=== PATIENT | male | born 2000 | race Two or more races ===

== ENCOUNTER 2022-08-22 05:31 | Inpatient (IN) | payer MEDICAID ==
[~2022-08-22] VITALS: Ht 144.8 cm; Wt 49.0 kg
--- NOTE | 2022-08-22 07:15 | NUR ---
RECEIVED CALL FROM SURI GLOVER RECEIVED REPORT FROM LIBRADO STEVENS.
--- NOTE | 2022-08-22 08:00 | NUR ---
RECEIVED PATIENT VIA GURNEY FROM [facility] ED, ACCOMPANIED BY 2 EMT'S AND 1 RN, pt awake but unresponsive to verbal command, NO FACIAL GRIMACING NOTED. NOT IN ANY DISTRESS, ON trach #8 shiley midline on mech vent. settings from previous facility alarms set and audible ambu-bag and spare trach at bedside. gonzalez blood from airway when suctioning NOTED. GT PATENT AND INTACT, FLUSHES WELL, NO RESIDUAL NOTED. BLOOD SUGAR 62, ORANGE JUICE GIVEN THRU GT, ROLAND [employer]IATION MEDICINE SPECIALIST MADE AWARE. RECHECKED SUGAR 77MG/DL. LEFT HAND PIV GAUGE 22 NOTED PATENT AND INTACT, FLUSHES WELL. NOTED REDNESS ON GT SITE, WOUND CARE CONSULT PLACED. PLACED ON TELE MONITOR WITH READING SR HR 60-61. PERICARE RENDERED. PLACED CALL LIGHT WITHIN REACH. HOB ELEVATED. ASPIRATION PRECAUTION MAINTAINED. SAFETY MEASURES IN PLACED. PLAN OF CARE CONTINUE.
--- NOTE | 2022-08-22 08:49 | NUR ---
Male trached pt received from [facility] direct admission to room 103. pt awake but unresponsive to verbal command trach #8 shiley midline on mech vent. settings from previous facility alarms set and audible ambu-bag and spare trach at bedside. gonzalez blood from airway when suctioning nursing staff aware.
[2022-08-22 09:00] VITALS: BP 121/62
[2022-08-22] MEDS ORDERED: SODI1TAB66 GT (09:53)
[2022-08-22] MEDS ORDERED: NUTR150016 GT (09:53)
[2022-08-22] MEDS ORDERED: HYDR-4076 GT (09:53)
[2022-08-22] MEDS ORDERED: RIVA10TA GT (09:53)
[2022-08-22] MEDS ORDERED: LEVO50TA8 GT (09:53)
[2022-08-22] MEDS ORDERED: DIVA125C5 GT (09:53)
[2022-08-22] MEDS ORDERED: DOCU50LI GT (09:53)
[2022-08-22] MEDS ORDERED: POLY15DR40 EACHEYE (09:53)
[2022-08-22] MEDS ORDERED: LANS30CA56 GT (09:55)
[2022-08-22] MEDS ORDERED: HYDROCODONE/APAP 5/325MG TABLET GT PRN (10:00)
[2022-08-22] MEDS ORDERED: IPRATROPIUM NEB FS 0.5 MG/2.5 ML AMPUL.NEB NEB PRN (10:00)
[2022-08-22] MEDS ORDERED: HYDROCODONE/APAP 10/325MG TABLET GT PRN (10:00)
[2022-08-22] MEDS ORDERED: Z GUARD REMEDY 4 OZ OINT TP PRN (10:00)
[2022-08-22] MEDS ORDERED: TEMAZEPAM 15 MG CAPSULE GT PRN (10:00)
[2022-08-22] MEDS ORDERED: ALBUTEROL FS 2.5 MG/3 ML VIAL.NEB NEB PRN (10:00)
[2022-08-22] MEDS ORDERED: LORAZEPAM INJ 2 MG/ML VIAL IV PRN (10:00)
[2022-08-22] MEDS ORDERED: ONDANSETRON HCL/PF 4 MG/2 ML VIAL IVP PRN (10:00)
[2022-08-22] MEDS ORDERED: PANTOPRAZOLE 40 MG VIAL IV SCH (10:00)
[2022-08-22] MEDS ORDERED: MULT-447 GT (10:02)
[2022-08-22] MEDS ORDERED: POLY17PO4 GT (10:02)
[2022-08-22] MEDS ORDERED: LEVE1000 GT (10:02)
[2022-08-22] MEDS ORDERED: CLOB2.5O2 GT (10:02)
[2022-08-22] MEDS ORDERED: ACET-868 GT (10:02)
[2022-08-22] MEDS ORDERED: BACL20TA GT (10:02)
[2022-08-22] MEDS ORDERED: ONDA4TAB5 GT (10:02)
[2022-08-22] MEDS ORDERED: OXCA300T15 GT (10:05)
[2022-08-22] MEDS ORDERED: CHOL100043 GT (10:21)
[2022-08-22] MEDS ORDERED: MAGN400O6 GT (10:21)
[2022-08-22] MEDS ORDERED: CLON0.1T GT (10:21)
[2022-08-22] MEDS ORDERED: IPRA3AMP23 IH (10:21)
[2022-08-22] MEDS ORDERED: METO-295 GT (10:21)
[2022-08-22] MEDS ORDERED: DIAZ1KIT6 RC (10:21)
[2022-08-22] MEDS ORDERED: DIPH25CA51 GT (10:21)
[2022-08-22] MEDS ORDERED: ALBU8.5H8 IH (10:21)
[2022-08-22] MEDS ORDERED: IPRA12.9 IH (10:21)
[2022-08-22 10:42] LABS: ALBUMIN 3.1 g/dL (3.4-5.0); BILIRUBIN,TOTAL 0.3 mg/dL (0.2-1.0); CALCIUM, SERUM 9.5 mg/dL (8.5-10.1); CREATININE 0.5 mg/dL (0.6-1.3); POTASSIUM 5.1 mmol/L (3.5-5.1); TOTAL PROTEIN, SERUM 10.3 g/dL (6.4-8.2)
[2022-08-22 11:05] LABS: BASOPHILS % (AUTO) 0.6 % (0.0-2.0); EOSINOPHILS % (AUTO) 2.2 % (0.0-6.0); HEMATOCRIT 29 % (39-51); HEMOGLOBIN 9.7 g/dL (13.5-17.5); LYMPHOCYTES # (AUTO) 1.3 K/uL (0.8-4.8); LYMPHOCYTES % (AUTO) 27.4 % (20.0-44.0); MEAN CORPUSCULAR HGB CONC 34 g/dl (31.0-36.0); MEAN CORPUSCULAR VOLUME 94 fL (80-96); MONOCYTES # (AUTO) 0.5 K/uL (0.1-1.30); MONOCYTES % (AUTO) 10.6 % (2.0-12.0); NEUTROPHILS # (AUTO) 2.9 K/uL (1.8-8.9); NEUTROPHILS % (AUTO) 59.2 % (43.0-81.0); PLATELET COUNT (AUTO) 232 K/uL (150-450); RED BLOOD CELL COUNT(AUTO) 3.09 MIL/uL (4.5-6.0); WHITE BLOOD COUNT (AUTO) 4.9 K/uL (4.3-11.0)
[2022-08-22] MEDS ORDERED: JEVITY 1.2 CAL 1,000 ML BOTTLE GT PRN (11:30)
[2022-08-22 13:00] VITALS: BP 102/50
--- NOTE | 2022-08-22 15:32 | NUR ---
SPUTUM COLLECTED, NOTED BLOODY SPUTUM, PUT IN THE FRIDGE, LAB INFORMED.
[2022-08-22] MEDS ORDERED: CLONIDINE HCL 0.1 MG TABLET GT PRN (16:30)
[2022-08-22] MEDS ORDERED: HOME MED MISCELLANEOUS XX SCH ×2 (16:30)
[2022-08-22] MEDS ORDERED: MAGNESIUM HYDROXIDE 30 ML UDC GT PRN (16:30)
[2022-08-22 17:00] VITALS: BP 122/85
[2022-08-22] MEDS ORDERED: ACETAMINOPHEN 650 MG/20.3 ML UDC GT PRN (17:00)
[2022-08-22] MEDS ORDERED: diphenhydrAMINE HCL ELIX 25 MG/10 ML UDC GT PRN (17:00)
[2022-08-22] MEDS ORDERED: METOCLOPRAMIDE HCL 10 MG/10 ML UDC GT PRN (17:00)
[2022-08-22] MEDS: SODIUM CHLORIDE 1000 MG TABLET GT SCH (17:17)
[2022-08-22] MEDS: OXCARBAZEPINE 150 MG TABLET GT SCH (17:17)
[2022-08-22] MEDS: BACLOFEN (10 MG) 10 MG TABLET GT SCH (17:17)
--- NOTE | 2022-08-22 18:07 | NUR ---
UA COLLECTED PLACED IN THE FRIDGE AND INFORMED LAB TO PER DIEM
--- NOTE | 2022-08-22 18:28 | NUR ---
SENIOR MAINTENANCE MACHINIST CLOSING NOTES PATIENT IN BED AWAKE, OBTUNDED, pt awake but unresponsive to verbal command, NO FACIAL GRIMACING NOTED. NOT IN ANY DISTRESS, ON trach #8 shiley midline on mech vent. settings as ordered. gonzalez blood from airway when suctioning NOTED. GT PATENT AND INTACT, FLUSHES WELL, NO RESIDUAL NOTED, ON JEVITY 1.2 @45ML/HR, TOLERATING WELL, NO N/V/D NOTED. LEFT HAND PIV GAUGE 22 NOTED PATENT AND INTACT, FLUSHES WELL. ON TELE MONITOR SR 70'S. PLACED CALL LIGHT WITHIN REACH. HOB ELEVATED. ASPIRATION PRECAUTION MAINTAINED. SAFETY MEASURES IN PLACED. WILL ENDORSE TO NIGHT NURSE FOR ROBERTA.
--- NOTE | 2022-08-22 18:53 | NUR ---
PHARMACY CALLED STATING THEY DON'T HAVE CLOBAZAM, CALLED ALL SAINTS,PER RN THEY CANNOT BRING IT HERE, PER PHARMACY INFORMED THE MD, INFORMED ROLAND CARRILLO, AWAITING FOR ORDERS.
[2022-08-22 18:58] LABS: BILIRUBIN,URINE NEGATIVE (NEGATIVE); COLOR,URINE YELLOW (YELLOW); LEUKOCYTE ESTERASE ,URINE 1+ (NEGATIVE); NITRITE, URINE NEGATIVE (NEGATIVE); PH,URINE 8.5 (5.0-8.0); PROTEIN,URINE NEGATIVE (NEGATIVE); UGLUCOSE NEGATIVE (NEGATIVE); UROBILINOGEN,URINE 0.2 EU/dL (0.2)
--- NOTE | 2022-08-22 19:00 | NUR ---
RN NOTE Report received from Jaimee Hummel RN, patient in bed, AO x 0, in no acute distress, saturation at 100% on trach to mechanical vent with prescribed settings, AC mode at rate of 18, TV 350, fio2 28%, peep 5. SR on the monitor, HR is 71. IV line at L hand 22g patent and flushing well, saline locked. Gtube in place, positive placement noted, no residual, with Jevity at 45 ml/hr. BUE and BLE are contracted. Aspiration and seizure precautions, and safety measures in place, bed is locked and at lowest position, HOB elevated, will continue to monitor and reassess.
[2022-08-22 19:08] LABS: BACTERIA,URINE 4+ /HPF (None Seen); RBC,URINE 0-2 /HPF (0-2); SQUAMOUS EPITHELIAL CELL,UR 0-2 /HPF (None Seen)
[2022-08-22 20:00] VITALS: BP 110/69
[2022-08-22] MEDS: hydrALAZINE HCL 25 MG TABLET GT SCH ×2 (20:52→21:00)
[2022-08-22] MEDS: DIVALPROEX SODIUM 125 MG CAP.SPRINK GT SCH (20:53)
[2022-08-22] MEDS: LEVETIRACETAM SOL (5 ML) 100 MG/ML UDC GT SCH (20:53)
[2022-08-23] VITALS: BP 127/82
[2022-08-23 04:00] VITALS: BP 107/62
[2022-08-23] MEDS: LEVOTHYROXINE SODIUM 50 MCG TABLET GT SCH (05:14)
[2022-08-23] MEDS: hydrALAZINE HCL 25 MG TABLET GT SCH ×3 (05:14→21:00)
--- NOTE | 2022-08-23 07:07 | NUR ---
RN NOTE Received patient in bed, AO x 0, in no acute distress, saturation at 100% on trach to mechanical vent with prescribed settings, AC mode at rate of 18, TV 350, fio2 28%, peep 5. Blood noted in the respiratory tubing, SR on the monitor, HR is 71. IV line at L hand 22g patent and flushing well, saline locked. Gtube in place, positive placement noted, no residual, with Jevity at 45 ml/hr. BUE and BLE are contracted. Aspiration and seizure precautions, and safety measures in place, bed is locked and at lowest position, HOB elevated, will continue to monitor and reassess.
[2022-08-23 07:28] LABS: CALCIUM, SERUM 9.1 mg/dL (8.5-10.1); CREATININE 0.5 mg/dL (0.6-1.3); MAGNESIUM 1.9 mg/dL (1.8-2.4); POTASSIUM 5.1 mmol/L (3.5-5.1)
[2022-08-23 08:00] VITALS: BP 115/62
[2022-08-23 08:21] LABS: BASOPHILS % (AUTO) 0.2 % (0.0-2.0); EOSINOPHILS % (AUTO) 1.5 % (0.0-6.0); HEMATOCRIT 31 % (39-51); HEMOGLOBIN 10.2 g/dL (13.5-17.5); LYMPHOCYTES # (AUTO) 1.9 K/uL (0.8-4.8); LYMPHOCYTES % (AUTO) 23.6 % (20.0-44.0); MEAN CORPUSCULAR HGB CONC 33 g/dl (31.0-36.0); MEAN CORPUSCULAR VOLUME 94 fL (80-96); MONOCYTES # (AUTO) 0.6 K/uL (0.1-1.30); MONOCYTES % (AUTO) 7.4 % (2.0-12.0); NEUTROPHILS # (AUTO) 5.3 K/uL (1.8-8.9); NEUTROPHILS % (AUTO) 67.3 % (43.0-81.0); PLATELET COUNT (AUTO) 250 K/uL (150-450); RED BLOOD CELL COUNT(AUTO) 3.27 MIL/uL (4.5-6.0); WHITE BLOOD COUNT (AUTO) 7.9 K/uL (4.3-11.0)
[2022-08-23] MEDS: POLYVINYL ALCOHOL 15 ML BOTTLE EACHEYE SCH (08:21)
[2022-08-23] MEDS: DIVALPROEX SODIUM 125 MG CAP.SPRINK GT SCH ×2 (08:22→21:44)
[2022-08-23] MEDS: DOCUSATE SODIUM LIQ 100 MG/10 ML UDC GT SCH (08:22)
[2022-08-23] MEDS: LEVETIRACETAM SOL (5 ML) 100 MG/ML UDC GT SCH ×2 (08:22→21:44)
[2022-08-23] MEDS: CHOLECALCIFEROL (VITAMIN D 3) 400 UNIT TABLET GT SCH (08:22)
[2022-08-23] MEDS: PANTOPRAZOLE 40 MG/PACK PACK GT SCH (08:23)
[2022-08-23] MEDS: OXCARBAZEPINE 150 MG TABLET GT SCH ×2 (08:23→16:05)
[2022-08-23] MEDS: BACLOFEN (10 MG) 10 MG TABLET GT SCH ×3 (08:23→16:05)
[2022-08-23] MEDS: MULTIVITAMINS,THERAGRAN 1 UDTAB TABLET GT SCH (08:23)
[2022-08-23] MEDS: POLYETHYLENE GLYCOL 3350 17 GM POWD.PACK GT SCH (08:23)
[2022-08-23] MEDS: SODIUM CHLORIDE 1000 MG TABLET GT SCH ×2 (08:23→16:05)
[2022-08-23] MEDS ORDERED: RIVAROXABAN 10 MG TABLET GT SCH (09:00)
--- NOTE | 2022-08-23 10:07 | NUR ---
RN NOTE PATIENT HAS BLEEDING TROUGH THE THRACHEIOSTOMY , CR MG , GERARDO ORDER
[2022-08-23] MEDS ORDERED: CEFEPIME 1 GM in IV D5W 50 ML IV SCH (11:00)
[2022-08-23] MEDS: CEFEPIME 2 GM in IV D5W 100 ML IV SCH ×2 (11:42→21:43)
[2022-08-23 12:00] VITALS: BP 97/49
--- NOTE | 2022-08-23 12:21 | NUR ---
rn note hydralazine was hold due to patient has low bp 95/48 hr 78
[2022-08-23 12:43] LABS: D-DIMER 1.65 mg/L(FEU (0.17-0.50)
[2022-08-23] MEDS: JEVITY 1.2 CAL 1,000 ML BOTTLE GT PRN (14:07)
[2022-08-23 16:00] VITALS: BP 94/49
--- NOTE | 2022-08-23 18:28 | NUR ---
SPORTS CENTRE MANAGER CLOSING NOTES PATIENT IN BED AWAKE, OBTUNDED, pt awake but unresponsive to verbal command, NO FACIAL GRIMACING NOTED. NOT IN ANY DISTRESS, ON trach #8 shiley on mech vent. settings as ordered. gonzalez blood from airway when suctioning NOTED. GT PATENT AND INTACT, FLUSHES WELL, NO RESIDUAL NOTED, ON JEVITY 1.2 @45ML/HR, TOLERATING WELL, NO N/V/D NOTED. LEFT HAND PIV GAUGE 22, RIGHT HAND 24 G, NOTED PATENT AND INTACT, FLUSHES WELL. ON TELE MONITOR SR 70'S. PLACED CALL LIGHT WITHIN REACH. HOB ELEVATED. ASPIRATION PRECAUTION MAINTAINED. SAFETY MEASURES IN PLACED. WILL ENDORSE TO NIGHT NURSE FOR ROBERTA.
--- NOTE | 2022-08-23 19:30 | NUR ---
FAMILY HEALTH NURSE PRACTITIONER OPENING NOTES - RECEIVED PATIENT AWAKE, HOB IN SEMI-COOPER'S. OBTUNDED. BREATHING EVEN AND NON-LABORED, ON MECHANICAL VENT WITH THE FF SETTINGS: AC 18, TV 350, FIO2 28, PEEP 5. NOT IN APPARENT DISTRESS. NO S/S OF PAIN OR DISCOMFORT AT THIS TIME. ON TELE MONITOR READING SINUS BRADYCARDIA AT 58 BPM. HAS THE FF IV ACCESS: LEFT HAND #22G AND RIGHT WRIST #24G, BOTH SALINE LOCKED. NO S/S OF INFILTRATION NOTED. HAS CONDOM CATHETER CONNECTED TO BAG. HAS PEG TUBE FEEDING OF JEVITY RUNNING AT 45 ML/HR. SAFETY PRECAUTIONS IN PLACE: BED LOCKED AND IN LOW POSITION, SIDE RAILS UP X3, BED ALARM ON, CALL LIGHT WITHIN REACH. WILL CONTINUE PLAN OF CARE.
[2022-08-23 20:00] VITALS: BP 104/63
[2022-08-24] VITALS: BP 110/65
--- NOTE | 2022-08-24 01:00 | NUR ---
URSULA MIDLINE #18G INSERTED BY ADELAIDE DELGADO, IDENTIFICATION PRINTING MACHINE SETTER
[2022-08-24 04:00] VITALS: BP 112/60
[2022-08-24] MEDS: hydrALAZINE HCL 25 MG TABLET GT SCH ×3 (05:00→21:00)
[2022-08-24] MEDS: LEVOTHYROXINE SODIUM 50 MCG TABLET GT SCH (05:43)
[2022-08-24 06:43] LABS: CALCIUM, SERUM 8.7 mg/dL (8.5-10.1); CREATININE 0.5 mg/dL (0.6-1.3); POTASSIUM 4.7 mmol/L (3.5-5.1)
--- NOTE | 2022-08-24 07:25 | NUR ---
MANAGER OF PROGRAM OPENING NOTES RECEIVED PT RESTING IN BED. NO CARDIAC OR RESPIRATORY DISTRESS NOTED. TOLERATING CURRENT MECHANICAL VENT SETTINGS WELL. SLIGHT BLOOD IN TRACH NOTED. ON TELE MONITOR READING SINUS RHYTHM AT 70 BPM. IV ACCESS IN LEFT HAND AND RIGHT WRIST AND RIGHT UPPER ARM MIDLINE INTACT, PATENT AND FLUSHING. WITH CONDOM CATH DRAINING CLEAR YELLOW URINE OUTPUT. ON PEG TUBE FEEDING AT 45ML/HR. SAFETY PRECAUTION IMPLEMENTED: BED LOCKED AND IN LOWEST POSITION, SIDE RAILS UP X 3. WILL CONTINUE TO MONITOR.
--- NOTE | 2022-08-24 07:27 | NUR ---
CHECK TOTALER CLOSING NOTES - PATIENT RESTING IN BED, AWAKE THROUGHOUT THE NIGHT. NO CARDIAC OR RESPIRATORY DISTRESS NOTED. TOLERATING CURRENT MECHANICAL VENT SETTINGS WELL. BLOODY TRACH DRAINAGE NOTED. GENTLE SUCTIONING DONE NEEDED. AFEBRILE. ON TELE MONITOR READING SINUS RHYTHM AT 70 BPM. LEFT HAND PIV, RIGHT WRIST PIV AND RIGHT UPPER ARM MIDLINE INTACT, PATENT AND FLUSHING. CLEAR YELLOW URINE OUTPUT NOTED. TOLERATING PEG TUBE FEEDING WELL, 30ML RESIDUAL NOTED. ALL DUE MEDS GIVEN AND NEEDS ATTENDED. OFFLOADED BUTTOCKS AND EXTREMITIES. TURNED AND REPOSITIONED. BEDBOUND AND NEEDS MAXIMUM ASSISTANCE. SAFETY PRECAUTIONS MAINTAINED. WILL ENDORSE TO NEXT SHIFT FOR ROBERTA.
[2022-08-24 08:00] VITALS: BP 109/61
[2022-08-24] MEDS: CEFEPIME 2 GM in IV D5W 100 ML IV SCH ×2 (08:34→21:35)
[2022-08-24] MEDS: POLYETHYLENE GLYCOL 3350 17 GM POWD.PACK GT SCH (08:34)
[2022-08-24] MEDS: OXCARBAZEPINE 150 MG TABLET GT SCH ×2 (08:34→17:33)
[2022-08-24] MEDS: LEVETIRACETAM SOL (5 ML) 100 MG/ML UDC GT SCH ×2 (08:34→21:35)
[2022-08-24] MEDS: DOCUSATE SODIUM LIQ 100 MG/10 ML UDC GT SCH (08:34)
[2022-08-24] MEDS: SODIUM CHLORIDE 1000 MG TABLET GT SCH ×5 (08:35→23:09)
[2022-08-24] MEDS: MULTIVITAMINS,THERAGRAN 1 UDTAB TABLET GT SCH (08:35)
[2022-08-24] MEDS: CHOLECALCIFEROL (VITAMIN D 3) 400 UNIT TABLET GT SCH (08:35)
[2022-08-24] MEDS: BACLOFEN (10 MG) 10 MG TABLET GT SCH ×3 (08:35→17:33)
[2022-08-24] MEDS: PANTOPRAZOLE 40 MG/PACK PACK GT SCH (08:35)
[2022-08-24] MEDS: DIVALPROEX SODIUM 125 MG CAP.SPRINK GT SCH ×2 (08:35→21:35)
[2022-08-24] MEDS: POLYVINYL ALCOHOL 15 ML BOTTLE EACHEYE SCH (08:41)
--- NOTE | 2022-08-24 10:10 | NUR ---
RN NOTE Sodium Chloride 1000mg tab due at 1000 not given, Sodium Chloride 1000mg tab given at 0835.
[2022-08-24 12:00] VITALS: BP 109/61
[2022-08-24 16:00] VITALS: BP 116/68
--- NOTE | 2022-08-24 19:30 | NUR ---
SALES REPRESENTATIVE SALES MANAGER CLOSING NOTES PT RESTING IN BED. TOLERATING CURRENT MECHANICAL VENT SETTINGS WELL. SLIGHT BLOOD IN TRACH NOTED. ON TELE MONITOR READING SINUS RHYTHM AT 70 BPM. IV ACCESS IN LEFT HAND AND RIGHT WRIST AND RIGHT UPPER ARM MIDLINE INTACT, PATENT AND FLUSHING. WITH CONDOM CATH DRAINING CLEAR YELLOW URINE OUTPUT. ON PEG TUBE FEEDING AT 45ML/HR. NEEDS ATTENDED. SUCTIONED SECRETIONS NEEDED. TURNED AND REPOSITIONED. SAFETY PRECAUTION IMPLEMENTED: BED LOCKED AND IN LOWEST POSITION, SIDE RAILS UP X 3. WILL ENDORSE ROBERTA TO KEEL PRESS OPERATOR.
--- NOTE | 2022-08-24 19:31 | NUR ---
SCLEROSCOPE TESTER OPENING NOTES RECEIVED PATIENT IN BED AWAKE. ON MECHANICAL VENT SETTING ON AC: 18, TV: 350, FIO2: 28, PEEP: 5 PATIENT TOLERATING WELL SATURATION 100%. NOTED TO HAVE TINGED OF BLOOD ON THE TRACH ENDORSED. ON TELE MONITOR READING SINUS RHYTHM AT 70 BPM. IV ACCESS RIGHT WRIST #24 SALINE LOCK NOTED TO BE PATENT AND INTACT. RIGHT UPPER ARM MIDLINE INTACT, PATENT AND FLUSHING. WITH CONDOM CATH DRAINING CLEAR YELLOW URINE OUTPUT. ON PEG TUBE FEEDING AT 45ML/HR. SAFETY PRECAUTION IMPLEMENTED: BED LOCKED AND IN LOWEST POSITION, SIDE RAILS UP X 3, CALL LIGHT AND BEDSIDE TABLE WITHIN PATIENT REACH. HOB ELEVATED.
[2022-08-24 20:00] VITALS: BP 93/38
--- NOTE | 2022-08-24 21:00 | NUR ---
RN NOTE HOLD HYDRALAZINE BLOOD PRESSURE TOO LOW CHECKED 2 TIMES. BP IS 93/38. CHARGE NURSE MADE AWARE.
--- NOTE | 2022-08-24 22:25 | NUR ---
RN NOTE PATIENT VOMITED. REGLAN IS GIVEN. WILL REASSESS
--- NOTE | 2022-08-24 22:25 | NUR ---
RN NOTE HOLD TUBE FEEDING. PATIENT IS VOMITING LARGE AMOUNT X3. BOARDING ROOM FIXER DELGADO MADE AWARE.
[2022-08-25] VITALS: BP 100/55
[2022-08-25] MEDS ORDERED: IV NS 0.9% 250 ML IV ONE (00:40)
[2022-08-25] MEDS ORDERED: CT SWABBABLE VALVE TRANS SET 1 EA INFUS.SET MC ONE (00:40)
[2022-08-25] MEDS ORDERED: IOHEXOL-300 100 ML VIAL IV ONE (00:40)
[2022-08-25] MEDS ORDERED: IV D5/ 0.9% NACL 1,000 ML IV PRN (01:00)
--- NOTE | 2022-08-25 01:25 | NUR ---
RN NOTE NEW ORDER OF CT ABDOMEN AND PELVIS WITH CONTRAST RECEIVED FROM GERARDO DELGADO. CALLED PATIENTS UNCLE TOMMIE BUIARA PHONE NUMBER [phone] VERBAL CONSENT IS AUTHORIZED BY PATIENTS UNCLE TOMMIE CREWS. TWO RNS SIGNED WITNESS SIGNED AND VERIFIED.
[2022-08-25 04:00] VITALS: BP 110/47
[2022-08-25] MEDS: hydrALAZINE HCL 25 MG TABLET GT SCH ×3 (05:00→21:00)
[2022-08-25] MEDS: LEVOTHYROXINE SODIUM 50 MCG TABLET GT SCH (05:10)
[2022-08-25] MEDS: SODIUM CHLORIDE 1000 MG TABLET GT SCH ×4 (05:10→23:18)
--- NOTE | 2022-08-25 05:10 | NUR ---
RN NOTE PATIENT ON TELE READING OF SINUS JOSE ON 45-47BPM. TRAIN ELECTRONIC TECHNICIAN SANDY MADE AWARE. CHARGE NURSE MADE AWARE.
--- NOTE | 2022-08-25 05:45 | NUR ---
RN NOTE CT SCAN OF ABDOMEN AND PELVIS WITH CONTRAST RESULTED. SEAL DELIVERY VEHICLE TEAM TECHNICIAN SANDY MADE AWARE.
--- NOTE | 2022-08-25 05:48 | NUR ---
RN NOTE HOLD HYDRALAZINE BLOOD PRESSURE LOW 110/47
--- NOTE | 2022-08-25 06:35 | NUR ---
COMPLAINT MANAGER CLOSING NOTES PATIENT IN BED AWAKE. ON MECHANICAL VENT SETTING ON AC: 18, TV: 350, FIO2: 28, PEEP: 5 PATIENT TOLERATING WELL SATURATION 100%. NOTED TO HAVE TINGED OF BLOOD ON THE TRACH ENDORSED. NO SIGNS OF SOB. ON TELE MONITOR READING SINUS RHYTHM AT 70 BPM. IV ACCESS RIGHT WRIST #24 SALINE LOCK NOTED TO BE PATENT AND INTACT. WITH CONDOM CATH DRAINING CLEAR YELLOW URINE OUTPUT. TUBE FEEDING ON HOLD. RESIDUAL 30CC. ALL DUE MEDICATIONS GIVEN, ALL NEEDS ARE MET. MADE SURE PATIENT IS CLEAN AND COMFORTABLE, REPOSITIONED PATIENT Q2HR ALL THROUGH OUT THE NIGHT. NO SIGNS OF DISTRESS NOTED, NOT IN PAIN AT THIS TIME. SAFETY PRECAUTION IMPLEMENTED: BED LOCKED AND IN LOWEST POSITION, SIDE RAILS UP X 3, CALL LIGHT AND BEDSIDE TABLE WITHIN PATIENT REACH. HOB ELEVATED. WILL ENDORSE TO NEXT SHIFT NURSE FOR CONTINUITY OF CARE.
[2022-08-25 06:36] LABS: CALCIUM, SERUM 9.3 mg/dL (8.5-10.1); CREATININE 0.6 mg/dL (0.6-1.3); POTASSIUM 4.6 mmol/L (3.5-5.1)
--- NOTE | 2022-08-25 07:32 | NUR ---
SLIDER ASSEMBLER OPENING NOTES PATIENT IN BED AWAKE. ON MECHANICAL VENT SETTING AC: 18, TV: 350, FIO2: 28, PEEP: 5. PATIENT TOLERATING WELL, BREATHING EVEN AND UNLABORED WITH NO S/S OF SOB OR RESPIRATORY DISTRESS. DRIED BLOOD PRESENT ON TRACH. IV ACCESS NOTED ON RIGHT WRIST #24 SALINE LOCKED, PATENT AND INTACT. CONDOM CATH NOTED DRAINING CLEAR YELLOW URINE OUTPUT. TUBE FEEDING ON HOLD PER ADVERTISING TRAFFIC MANAGER NURSE DUE TO EPISODE OF EMESIS DURING PM SHIFT. SAFETY PRECAUTION IMPLEMENTED WITH BED LOCKED AND IN LOWEST POSITION, SIDE RAILS UP X 3, CALL LIGHT AND BEDSIDE TABLE WITHIN PATIENT REACH, AND HOB ELEVATED. WILL CONTINUE TO MONITOR.
[2022-08-25 08:00] VITALS: BP 107/54
[2022-08-25] MEDS ORDERED: BISACODYL SUPP (10 MG) 10 MG/SUPP.RECT SUPP.RECT RC PRN (08:00)
[2022-08-25] MEDS: POLYETHYLENE GLYCOL 3350 17 GM POWD.PACK GT SCH (08:31)
[2022-08-25] MEDS: BACLOFEN (10 MG) 10 MG TABLET GT SCH ×3 (08:32→17:04)
[2022-08-25] MEDS: DOCUSATE SODIUM LIQ 100 MG/10 ML UDC NG SCH ×2 (08:32→17:03)
[2022-08-25] MEDS: LEVETIRACETAM SOL (5 ML) 100 MG/ML UDC GT SCH ×2 (08:32→20:41)
[2022-08-25] MEDS: MULTIVITAMINS,THERAGRAN 1 UDTAB TABLET GT SCH (08:32)
[2022-08-25] MEDS: DIVALPROEX SODIUM 125 MG CAP.SPRINK GT SCH ×2 (08:32→20:42)
[2022-08-25] MEDS: PANTOPRAZOLE 40 MG/PACK PACK GT SCH (08:33)
[2022-08-25] MEDS: OXCARBAZEPINE 150 MG TABLET GT SCH ×2 (08:33→17:04)
[2022-08-25] MEDS: CHOLECALCIFEROL (VITAMIN D 3) 400 UNIT TABLET GT SCH (08:34)
[2022-08-25] MEDS: CEFEPIME 2 GM in IV D5W 100 ML IV SCH ×2 (08:38→20:45)
--- NOTE | 2022-08-25 09:26 | NUR ---
WOUND CARE CONSULT: PT PRESENTS WITH SCARRING AND INTACT DEEP TISSUE INJURY TO SACRUM, PRESENT ON ADMISSION. RECOMMENDATIONS MADE FOR SKIN PROTECTION. DISCUSSED WITH NURSING STAFF. PT IS INCONTINENT. CONDOM CATH IN USE. MD IN AGREEMENT WITH PLAN OF CARE.
[2022-08-25] MEDS: POLYVINYL ALCOHOL 15 ML BOTTLE EACHEYE SCH (10:44)
--- NOTE | 2022-08-25 10:49 | NUR ---
PER DR DAY, PATIENT GT SHOULD BE FLUSHED WITH NS, NOT WATER.
[2022-08-25 11:24] LABS: THYROID STIMULATING HORMONE 2.075 uIU/mL (0.358-3.74)
[2022-08-25 12:00] VITALS: BP 105/61
[2022-08-25] MEDS: ENOXAPARIN SODIUM 40 MG/0.4 ML DISP.SYRIN SQ SCH (12:41)
--- NOTE | 2022-08-25 14:34 | NUR ---
PATIENT TO CONTINUE RECEIVING ANTICOAGULANTS PER ROLAND HART DNP BLEEDING HAS BEEN RESOLVED. CHANGED TO LOVENOX.
[2022-08-25 16:00] VITALS: BP 100/45
--- NOTE | 2022-08-25 17:13 | NUR ---
ROLAND HART DNP ORDERED RESTART OF G-TUBE FEEDING AT VERY LOW RATE. STARTED OF 10. MINIMAL RESIDUAL SO INCREASED TO 20 AT 1648.
--- NOTE | 2022-08-25 18:41 | NUR ---
RAGS LABORER CLOSED NOTES PATIENT IN BED AWAKE. OBTUNDED. ON MECHANICAL VENT SETTING AC: 18, TV: 350, FIO2: 28, PEEP: 5. SATING AT 100% BREATHING EVEN AND UNLABORED WITH NO S/S OF SOB OR RESPIRATORY DISTRESS. ON TELE MONITOR READING SB 41 - SR 95. IV ACCESS NOTED ON RIGHT WRIST #24 SALINE LOCKED AND LEFT HAND 22G PATENT AND INTACT. CONDOM CATH NOTED DRAINING CLEAR YELLOW URINE OUTPUT. GT INTACT RUNNING JEVITY 1.2 @ 20 CC/HR. ALL DUE MEDS GIVEN AND PATIENT KEPT CLEAN AND COMFORTABLE. SAFETY PRECAUTION IMPLEMENTED WITH BED LOCKED AND IN LOWEST POSITION, SIDE RAILS UP X 3, CALL LIGHT AND BEDSIDE TABLE WITHIN PATIENT REACH, AND HOB ELEVATED. WILL ENDORSE TO ONCOMING SHIFT FOR ROBERTA..
--- NOTE | 2022-08-25 19:30 | NUR ---
FRONT DESK PERSON OPENING NOTES RECEIVED PATIENT AWAKE IN BED WITH OPEN EYES. NO PAIN NOTED. NO SOB NOTED. NO DISTRESS NOTED. PATIENT IS OBTUNDED. PATIENT IS ON VENT , SETTING OF SHILEY , AC 18, , TV 350, FIO2 28 AND PEEP 5, O2 SAT NOTED 97%. PATIENT HAS CONDOM CATHETER. ON TELE MONITOR READING SB 52. ON GTUBE FEEDING OF JEVITY 1.2 AT 20 CC/HR CURRENTLY. IV ACCESS IS ON LEFT HAND G # 22 AND RIGHT WRIST # 24. ALL NEEDS ATTENDED. ALL SAFETY MEASURES IN PLACE. BED LOCKED IN THE LOWEST POSITION. CALL LIGHT IN EASY REACH. SIDE RAILS UP TIMES 3. BED ALARM ON. HEAD OF THE BED ELEVATED FOR ASPIRATION PRECAUTION. WILL CONTINUE TO MONITOR CLOSELY
[2022-08-25 20:00] VITALS: BP 103/58
[2022-08-26 00:53] VITALS: BP 98/45
[2022-08-26] MEDS: hydrALAZINE HCL 25 MG TABLET GT SCH ×3 (05:00→21:00)
[2022-08-26] MEDS: LEVOTHYROXINE SODIUM 50 MCG TABLET GT SCH (05:38)
[2022-08-26] MEDS: SODIUM CHLORIDE 1000 MG TABLET GT SCH ×3 (05:38→17:35)
[2022-08-26 05:53] VITALS: BP 108/60
--- NOTE | 2022-08-26 06:32 | NUR ---
CONDITIONING COACH CLOSING NOTES PATIENT AWAKE IN BED WITH OPEN EYES. NO PAIN NOTED. NO SOB NOTED. NO DISTRESS NOTED. PATIENT IS OBTUNDED. PATIENT IS ON VENT , SETTING OF SHILEY , AC 18, , TV 350, FIO2 28 AND PEEP 5, O2 SAT NOTED 100%. PATIENT HAS CONDOM CATHETER. ON TELE MONITOR READING SB 56. ON GTUBE FEEDING OF JEVITY 1.2 AT 20 CC/HR CURRENTLY. NO RESIDUAL NOTED.IV ACCESS IS ON LEFT HAND G # 22 AND RIGHT WRIST # 24. INTACT. ALL DUE MEDS GIVEN ORDERED. ALL NEEDS ATTENDED. ALL SAFETY MEASURES IN PLACE. BED LOCKED IN THE LOWEST POSITION. CALL LIGHT IN EASY REACH. SIDE RAILS UP TIMES 3. BED ALARM ON. HEAD OF THE BED ELEVATED FOR ASPIRATION PRECAUTION. WILL ENDORSE FOR ROBERTA.
--- NOTE | 2022-08-26 07:25 | NUR ---
AUDIO OPERATOR OPENING NOTES RECEIVED PATIENT AWAKE IN BED WITH OPEN EYES. NO PAIN NOTED. NO SOB NOTED. NO DISTRESS NOTED. PATIENT IS OBTUNDED. PATIENT IS ON VENT , SETTING OF SHILEY , AC 18, , TV 350, FIO2 28 AND PEEP 5, O2 SAT NOTED 97%. PATIENT HAS CONDOM CATHETER. ON TELE MONITOR READING SB 55. ON GTUBE FEEDING OF JEVITY 1.2 AT 20 CC/HR CURRENTLY. IV ACCESS IS ON LEFT HAND G # 22 AND RIGHT WRIST # 24. . ALL SAFETY MEASURES IN PLACE. BED LOCKED IN THE LOWEST POSITION. CALL LIGHT IN EASY REACH. SIDE RAILS UP TIMES 3. BED ALARM ON. HEAD OF THE BED ELEVATED FOR ASPIRATION PRECAUTION. WILL CONTINUE TO MONITOR CLOSELY
[2022-08-26 07:35] LABS: CALCIUM, SERUM 9.2 mg/dL (8.5-10.1); CREATININE 0.5 mg/dL (0.6-1.3); POTASSIUM 4.5 mmol/L (3.5-5.1)
[2022-08-26 08:00] VITALS: BP 112/50
[2022-08-26] MEDS: CHOLECALCIFEROL (VITAMIN D 3) 400 UNIT TABLET GT SCH (09:03)
[2022-08-26] MEDS: BACLOFEN (10 MG) 10 MG TABLET GT SCH ×3 (09:03→16:29)
[2022-08-26] MEDS: PANTOPRAZOLE 40 MG/PACK PACK GT SCH (09:03)
[2022-08-26] MEDS: OXCARBAZEPINE 150 MG TABLET GT SCH ×2 (09:04→16:29)
[2022-08-26] MEDS: POLYETHYLENE GLYCOL 3350 17 GM POWD.PACK GT SCH (09:04)
[2022-08-26] MEDS: DOCUSATE SODIUM LIQ 100 MG/10 ML UDC NG SCH ×2 (09:04→16:29)
[2022-08-26] MEDS: DIVALPROEX SODIUM 125 MG CAP.SPRINK GT SCH ×2 (09:04→21:13)
[2022-08-26] MEDS: LEVETIRACETAM SOL (5 ML) 100 MG/ML UDC GT SCH ×2 (09:05→21:13)
[2022-08-26] MEDS: MULTIVITAMINS,THERAGRAN 1 UDTAB TABLET GT SCH (09:12)
[2022-08-26] MEDS: CEFEPIME 2 GM in IV D5W 100 ML IV SCH (09:13)
[2022-08-26] MEDS: ENOXAPARIN SODIUM 40 MG/0.4 ML DISP.SYRIN SQ SCH (09:14)
[2022-08-26] MEDS: POLYVINYL ALCOHOL 15 ML BOTTLE EACHEYE SCH (09:18)
[2022-08-26 12:00] VITALS: BP 110/55
[2022-08-26 16:00] VITALS: BP 105/55
--- NOTE | 2022-08-26 18:48 | NUR ---
YEAST CULTURE OPERATOR CLOSING NOTES RECEIVED PATIENT AWAKE IN BED WITH OPEN EYES. NO PAIN NOTED. NO SOB NOTED. NO DISTRESS NOTED. PATIENT IS OBTUNDED. PATIENT IS ON VENT , SETTING OF SHILEY , AC 18, , TV 350, FIO2 28 AND PEEP 5, O2 SAT NOTED 97%. PATIENT HAS CONDOM CATHETER. ON TELE MONITOR READING SB 55. ON GTUBE FEEDING OF JEVITY 1.2 AT 40 CC/HR CURRENTLY. IV ACCESS IS ON LEFT HAND G # 22 AND RIGHT WRIST # 24. . ALL DUE MEDS GIVEN ORDERED . FLUSHING GT OF NACL GIVEN ORDERED , ALL SAFETY MEASURES IN PLACE. BED LOCKED IN THE LOWEST POSITION. . SIDE RAILS UP TIMES 3. BED ALARM ON. HEAD OF THE BED ELEVATED FOR ASPIRATION PRECAUTION. ENDORSED TO NEXT SHIFT
[2022-08-26 20:00] VITALS: BP 95/38
--- NOTE | 2022-08-26 23:40 | NUR ---
RN NOTE REPORT GIVEN TO NAYELY STEVENS FOR CONTINUITY OF CARE.
[2022-08-27] VITALS: BP 109/46
--- NOTE | 2022-08-27 | NUR ---
ENDORSED PATIENT FROM JEAN PIERRE RN FOR CONTINUATION OF CARE, PATIENT ON MECHANICAL VENTILATOR, NO SOB/ACUTE RESPIRATORY DISTRESS NOTED, WILL CONT TO MONITOR CLOSELY.
[2022-08-27] MEDS: SODIUM CHLORIDE 1000 MG TABLET GT SCH ×3 (00:22→12:38)
[2022-08-27 04:53] VITALS: BP 104/40
[2022-08-27] MEDS: hydrALAZINE HCL 25 MG TABLET GT SCH ×2 (05:00→12:38)
--- NOTE | 2022-08-27 05:02 | NUR ---
RN NOTE HELD HYDRALIZINE BP 104/43
[2022-08-27] MEDS: LEVOTHYROXINE SODIUM 50 MCG TABLET GT SCH (05:06)
[2022-08-27] MEDS: JEVITY 1.2 CAL 1,000 ML BOTTLE GT PRN (05:23)
--- NOTE | 2022-08-27 06:27 | NUR ---
RN CLOSING NOTES PATIENT IN BED AWAKE. ON MECHANICAL VENT SETTING ON AC: 18, TV: 350, FIO2: 28, PEEP: 5 PATIENT TOLERATING WELL SATURATION 100%. NOTED TO HAVE TINGED OF BLOOD ON THE TRACH ENDORSED. NO SIGNS OF SOB. ON TELE MONITOR READING. IV ACCESS RIGHT WRIST #24 SALINE LOCK NOTED TO BE PATENT AND INTACT. WITH CONDOM CATH DRAINING CLEAR YELLOW URINE OUTPUT. TUBE FEEDING ON HOLD. RESIDUAL 20CC. ALL DUE MEDICATIONS GIVEN, ALL NEEDS ARE MET. REPOSITIONED PATIENT Q2HR ALL THROUGH OUT THE NIGHT. NO SIGNS OF DISTRESS NOTED, NOT IN PAIN AT THIS TIME. SAFETY PRECAUTION IMPLEMENTED: BED LOCKED AND IN LOWEST POSITION, SIDE RAILS UP X 3, CALL LIGHT AND BEDSIDE TABLE WITHIN PATIENT REACH. HOB ELEVATED. WILL ENDORSE TO AM SHIFT ROBERTA.
[2022-08-27 06:52] LABS: BASOPHILS % (AUTO) 0.2 % (0.0-2.0); EOSINOPHILS % (AUTO) 1.6 % (0.0-6.0); HEMATOCRIT 29 % (39-51); HEMOGLOBIN 9.5 g/dL (13.5-17.5); LYMPHOCYTES % (AUTO) 25.3 % (20.0-44.0); MEAN CORPUSCULAR HGB CONC 34 g/dl (31.0-36.0); MEAN CORPUSCULAR VOLUME 97 fL (80-96); MONOCYTES # (AUTO) 0.6 K/uL (0.1-1.30); MONOCYTES % (AUTO) 8.4 % (2.0-12.0); NEUTROPHILS % (AUTO) 64.5 % (43.0-81.0); PLATELET COUNT (AUTO) 265 K/uL (150-450); RED BLOOD CELL COUNT(AUTO) 2.93 MIL/uL (4.5-6.0); WHITE BLOOD COUNT (AUTO) 7.7 K/uL (4.3-11.0)
[2022-08-27 07:23] LABS: CALCIUM, SERUM 9.2 mg/dL (8.5-10.1); CREATININE 0.5 mg/dL (0.6-1.3); POTASSIUM 4.2 mmol/L (3.5-5.1)
--- NOTE | 2022-08-27 07:30 | NUR ---
RN OPENING NOTES PATIENT IN BED AWAKE. OBTUNDED. ON MECHANICAL VENT SETTING ON AC: 18, TV: 350, FIO2: 28, PEEP: 5 TOLERATING WELL BREATHING EVEN AND UNLABORED WITH NO S/S OF SOB OR RESPIRATORY DISTRESS. IV ACCESS RIGHT WRIST #24 SALINE LOCK NOTED TO BE PATENT AND INTACT. R WRIST 22G SL INTACT AND PATENT. CONDOM CATH NOTED DRAINING CLEAR YELLOW OUTPUT. GTUBE IN PLACE RUNNING 40 CC/HR WITH NO RESIDUAL. SAFETY PRECAUTION IMPLEMENTED: BED LOCKED AND IN LOWEST POSITION, SIDE RAILS UP X 3, CALL LIGHT AND BEDSIDE TABLE WITHIN PATIENT REACH AND HOB ELEVATED. WILL CONTINUE TO MONITOR.
[2022-08-27 08:00] VITALS: BP 116/58
[2022-08-27] MEDS: DOCUSATE SODIUM LIQ 100 MG/10 ML UDC NG SCH (08:45)
[2022-08-27] MEDS: DIVALPROEX SODIUM 125 MG CAP.SPRINK GT SCH (08:46)
[2022-08-27] MEDS: LEVETIRACETAM SOL (5 ML) 100 MG/ML UDC GT SCH (08:46)
[2022-08-27] MEDS: ENOXAPARIN SODIUM 40 MG/0.4 ML DISP.SYRIN SQ SCH (08:47)
[2022-08-27] MEDS: BACLOFEN (10 MG) 10 MG TABLET GT SCH ×2 (08:48→12:38)
[2022-08-27] MEDS: PANTOPRAZOLE 40 MG/PACK PACK GT SCH (08:48)
[2022-08-27] MEDS: CHOLECALCIFEROL (VITAMIN D 3) 400 UNIT TABLET GT SCH (08:48)
[2022-08-27] MEDS: MULTIVITAMINS,THERAGRAN 1 UDTAB TABLET GT SCH (08:48)
[2022-08-27] MEDS: POLYETHYLENE GLYCOL 3350 17 GM POWD.PACK GT SCH (08:48)
[2022-08-27] MEDS: OXCARBAZEPINE 150 MG TABLET GT SCH (08:48)
[2022-08-27] MEDS: POLYVINYL ALCOHOL 15 ML BOTTLE EACHEYE SCH (09:08)
[2022-08-27 12:00] VITALS: BP 107/50
--- NOTE | 2022-08-27 15:47 | NUR ---
REPORT GIVEN TO KHANH Bustos RN AT [facility]. PICKUP SCHEDULED FOR [id number].
[2022-08-27 16:00] VITALS: BP 116/56
--- NOTE | 2022-08-27 17:12 | NUR ---
PATIENT PICKED UP BY AMBULANCE. DISCHARGING IN STABLE CONDITION.
== END 2022-08-27 15:20 | DRG 130 ==
LOC: TELE1 07:51
PROVIDERS: ADMIT Nurse Practitioner Family; ATTEND Nurse Practitioner Family
PROC: 5A1955Z Respiratory Ventilation, Greater than 96 Consecutive Hours (ICD-10-PCS; principal; 2022-08-22)
PROC: 05HB33Z Insertion of Infusion Device into Right Basilic Vein, Percutaneous Approach (ICD-10-PCS; 2022-08-24)
DX: J69.0 Pneumonitis due to inhalation of food and vomit (principal); G93.41 Metabolic encephalopathy; J96.20 Acute and chronic respiratory failure, unspecified whether with hypoxia or hypercapnia; D68.59 Other primary thrombophilia; D63.8 Anemia in other chronic diseases classified elsewhere; E87.1 Hypo-osmolality and hyponatremia; E88.09 Other disorders of plasma-protein metabolism, not elsewhere classified; I48.91 Unspecified atrial fibrillation; G40.909 Epilepsy, unspecified, not intractable, without status epilepticus; Z99.11 Dependence on respirator [ventilator] status; J15.9 Unspecified bacterial pneumonia; E87.5 Hyperkalemia; J44.0 Chronic obstructive pulmonary disease with (acute) lower respiratory infection; N39.0 Urinary tract infection, site not specified; J98.11 Atelectasis; E03.9 Hypothyroidism, unspecified; B96.89 Other specified bacterial agents as the cause of diseases classified elsewhere; K21.9 Gastro-esophageal reflux disease without esophagitis; Z79.01 Long term (current) use of anticoagulants; Z87.19 Personal history of other diseases of the digestive system; R13.10 Dysphagia, unspecified; Z74.01 Bed confinement status; M62.462 Contracture of muscle, left lower leg; M62.461 Contracture of muscle, right lower leg; M62.422 Contracture of muscle, left upper arm; M62.421 Contracture of muscle, right upper arm; Z15.89 Genetic susceptibility to other disease; K59.00 Constipation, unspecified; Y95 Nosocomial condition; Z87.820 Personal history of traumatic brain injury; M24.451 Recurrent dislocation, right hip; M41.9 Scoliosis, unspecified; J95.01 Hemorrhage from tracheostomy stoma; Y84.8 Other medical procedures as the cause of abnormal reaction of the patient, or of later complication, without mention of misadventure at the time of the procedure; Y92.230 Patient room in hospital as the place of occurrence of the external cause
CPT/HCPCS: 31720; 36410; 36415; 71045-TC; 80048-TC; 80053-TC; 81001; 82533; 82962-TC; 83735-TC; 84100-TC; 84443-TC; 85025-TC; 85378-TC; 85385-TC; 85610-TC; 86803; 87081-TC; 87086-TC; 87806; 94003-TC; 94760-TC; 94762-TC; 94799-TC; A4223; A4349; A7526; C9113; G0378; J0692; J1650; J1953; J7030; J7042; J7050; J7060; J8597; Q9967